=== PATIENT | male | born 1975 | race Two or more races ===

== ENCOUNTER 2018-12-02 06:28 | Emergency (ER) | payer MEDICAID ==
[~2018-12-02] VITALS: Ht 180.3 cm; Wt 107.0 kg
[2018-12-02] MEDS ORDERED: BENZONATATE 100 MG CAPSULE PO ONE (07:00)
[2018-12-02] MEDS ORDERED: BENZONATATE 100 MG CAPSULE ONE (07:07)
[2018-12-02 07:13] VITALS: BP 131/78
--- NOTE | 2018-12-02 08:20 | NUR ---
Patient/Caregiver given discharge instructions and they have confirmed that they understand the instructions. Patient ambulatory with steady gait.
== END 2018-12-02 08:20 | disposition home or self-care (01) ==
LOC: ED 06:50
DX: J18.9 Pneumonia, unspecified organism (principal)
CPT/HCPCS: 71046; 99283